=== PATIENT | female | born 1990 | race Caucasian/White ===

== ENCOUNTER 2022-06-09 12:09 | Inpatient (IN) | payer MEDICAID, MEDICARE, OTHER ==
[2022-06-09] MEDS ORDERED: METHYLERGONOVINE 0.2 MG/ML 1 ML AMP IM PRN (12:16)
[2022-06-09] MEDS ORDERED: AMPICILLIN 2,000 MG in SODIUM CHLORIDE 0.9% 100 ML IVPB STA (12:16)
[2022-06-09] MEDS ORDERED: TERBUTALINE 1 MG/ML VIAL SQ PRN (12:16)
[2022-06-09] MEDS ORDERED: CARBOPROST TROMETHAMINE 250 MCG/ML 1 ML AMP IM PRN (12:16)
[2022-06-09] MEDS ORDERED: LIDOCAINE 0.5% (PF) 5 MG/ML (50 ML SDV) SQ PRN (12:16)
[2022-06-09] MEDS: LACTATED RINGERS 1,000 ML IV SCH ×4 (12:40→17:09)
--- NOTE | 2022-06-09 12:41 | P.HPOB ---
History of Present Illness Chief Complaint: Leaking of fluid This patient is a 32-year-old 2 para 0 female estimated date of confinement 06/25/2022 estimated gestational age 37-5/7 weeks gestation who is admitted to labor and delivery with complaints of gush of fluid earlier this morning and onset of contractions thereafter. Patient's care is per Dr. Malik and is complicated by late to seek care, noncompliance with care and positive toxicology screen for amphetamines and marijuana. Patient also had an abnormal Glucola and has not been doing any glucose testing. Patient was in the office and saw Dr. Malik yesterday and was 1 cm dilated is now 3-4 cm dilated with ruptured membranes meconium fluid and thought to be in early labor. Review of Systems Genitourinary: Reports Menstruation: Reports amenorrhea Past Medical History Past Medical History: No Reported History History of Any Multi-Drug Resistant Organisms: None Reported Past Surgical History: No Surgical Hx Reported Past Psychological History: No Psychological Hx Reported Smoking Status: Current every day smoker Past Alcohol Use History: None Reported Past Drug Use History: Marijuana, Methamphetamine Medications and Allergies Home Medications Medication Instructions Recorded Confirmed Type No Known Home Medications 06/09/22 06/09/22 History Allergies Allergy/AdvReac Type Severity Reaction Status Date / Time No Known Allergies Allergy Verified 06/09/22 12:15 Exam Intake and Output 06/08/22 06/09/22 06/09/22 22:59 06:59 14:59 Other: Weight 52.163 kg - OBG Physical Exam Abdomen: bowel sounds normal, no diffuse tenderness, no bruit present, no guarding noted, no hepatomegaly, no splenomegaly, no mass Vulva: both: normal Vagina: normal moisture, no discharge Cervix: no lesion (cervix is 3-4 cm dilated with gross rupture membranes and thick meconium fluid), no discharge Uterus: enlarged (fundal height yesterday per Dr. Malik 35 cm) Results labs show she is O positive, rubella immune, RPR nonreactive, hepatitis B negative, HIV is nonreactive, hemoglobin is 11.8, group B strep was positive, Glucola was abnormal at 149 and she did not do a 3 hour gtt., drug screen was positive for cannabinoids and amphetamines on May 11 Assessment and Plan Assessment: This is a 32-year-old 2 para 0 female 37-5/7 weeks with spontaneous rupture membranes, early labor, thick meconium fluid, noncompliance with care, polysubstance abuse, and positive group B strep. Plan is antibiotic prophylaxis and anticipate vaginal delivery. She will need a mental health social worker consultation and I also did discuss with the funeral planner the fact that she has all these findings. (1) 37 or more weeks gestation of Current Visit: Yes Status: Acute Code(s): TSP7491 - SNOMED Code(s): 87725 001 (2) Spontaneous rupture of amniotic membranes Current Visit: Yes Status: Acute Code(s): CXY4852 - SNOMED Code(s): 654114324 (3) Meconium in amniotic fluid Current Visit: Yes Status: Acute Code(s): P96.83 - MECONIUM STAINING SNOMED Code(s): 986957734 (4) Non-compliance Current Visit: Yes Status: Acute Code(s): Z91.199 - PT NONCOMPL WITH OTHER MED TRTMT AND REGIMEN D/T UNSP REASON SNOMED Code(s): 9822449 (5) Polysubstance abuse Current Visit: Yes Status: Acute Code(s): F19.10 - OTHER PSYCHOACTIVE SUBSTANCE ABUSE, UNCOMPLICATED SNOMED Code(s): 639883922
[2022-06-09 13:05] LABS: HCT 31.1 % (34.0-46.0); HGB 10.1 gm/dL (11.4-16.0); Hypochromasia Marked; MCH 23.3 pg (25.0-35.0); MCHC 32.4 g/dL (31.0-37.0); MCV 71.9 fL (80.0-100.0); Mean Platelet Volume 8.1; Microcytosis Moderate; Platelet Count 876 k/uL (150-450); Poikilocytosis Moderate; RBC 4.32 m/uL (3.80-5.40); RDW 15.5 % (11.5-15.5); WBC 28.6 k/uL (3.8-10.6)
[2022-06-09] MEDS ORDERED: SODIUM CHLORIDE 0.9% 100 ML BAG ONE (13:06)
[2022-06-09] MEDS ORDERED: fentaNYL (PF) 50 MCG/ML 5 ML AMP ONE (13:06)
[2022-06-09] MEDS ORDERED: ROPIVACAINE 5 MG/ML 20 ML AMPULE ONE (13:06)
[2022-06-09 13:12] LABS: Amphetamine Screen,Urine Not Detected (NotDetected); Barbiturate Screen,Urine Not Detected (NotDetected); Benzodiazepines Screen,Urine Not Detected (NotDetected); Cocaine Screen,Urine Not Detected (NotDetected); Methadone Screen, Urine Not Detected (NotDetected); Opiate Screen,Urine Not Detected (NotDetected); Oxycodone Screen, Urine Not Detected (NotDetected); Phencyclidine Screen,Urine Not Detected (NotDetected); Tricyclic Antidepressant,Urine Not Detected (NotDetected); Urn Cannabinoid Scrn Detected (NotDetected)
[2022-06-09 13:18] LABS: Lymphocytes # (M) 2.57 k/uL (1.0-4.8); Monocytes # (M) 1.14 k/uL (0-1.0); Neutrophils # (M) 25.17 k/uL (1.3-7.7); Neutrophils % (M) 88 %; Nucleated Red Blood Cells 0 /100 WBC (0-0); Rouleaux Present; Total Cells Counted 200
--- NOTE | 2022-06-09 17:05 | P.PN ---
Progress Note - Text Progress Note Date: 06/09/22 Patient's CBC returned with a white blood cell count of 28.9 with increased number of neutrophils. Patient also has elevated platelets which apparently is a chronic issue. Temperature at this time is 99 1. She was having some late decelerations however these did respond to some fluid and position changes. Cervix is 7-8 cm dilated she does have some swelling. Patient is already on some IV antibiotics due to positive strep culture. Plan at this time is close observation if she were to continue to have late decelerations or evidence of nonprogression we'll proceed with delivery by section.
[2022-06-09] MEDS: AMPICILLIN 1,000 MG in SODIUM CHLORIDE 0.9% 50 ML IVPB SCH ×2 (17:08→22:12)
[2022-06-09] MEDS ORDERED: OXYTOCIN 30 UNITS/500 ML NS 30 UNIT in SALINE 1 500ML.BAG IV SCH (18:30)
--- NOTE | 2022-06-09 19:39 | P.PROBDLV ---
Vaginal Delivery Note - . Vaginal Delivery Note: Normal spontaneous vaginal delivery viable female Apgars 9 and 9 delivery time is 1918 hrs. Please see dictated H&P for intimate details of this patient's admission. In brief summary this is a 32-year-old 2 para 0 female 37-4/7 weeks gestation admitted to labor and delivery with spontaneous rupture membranes for meconium-stained fluid. Patient's admission is 3-4 cm dilated. Patient does receive an epidural for pain control. Patient gets to approximately 8 cm dilated and is started having some swelling on the cervix. At this time we do position changes and I do start some Pitocin. Patient thereafter does get to complete pushes for 5 or 10 minutes and pushes the head to the perineum. Posterior perineum is supported we have controlled delivery of the infant's head over the intact perineum. Nurse manager practice is present for delivery. Mouth and nares are bulb suctioned. There is no evidence of a nuchal cord. With gentle downward traction we then have deliver the anterior and posterior shoulder and rest this infant's body. This is a vigorous viable female Apgars are 9 and 9 delivery time is 1918 hrs. After delivery of the the umbilical cord is loud quit pulsating then doubly clamped and cut. The placenta is then spontaneously delivered intact. Estimated blood loss is approximately 100 mL. There are superficial bilateral periurethral lacerations that do not require repair. and mother are stable delivery room. No complications. All counts correct 3.
[2022-06-09] MEDS ORDERED: diphenhydrAMINE 50 MG CAP PO PRN (21:01)
[2022-06-09] MEDS ORDERED: diphenhydrAMINE 25 MG CAP PO PRN (21:01)
[2022-06-09] MEDS ORDERED: BENZOCAINE/MENTHOL SPRAY 1 GM/SPRAY AEROSOL TOPICAL PRN (21:01)
[2022-06-09] MEDS ORDERED: LANOLIN CREAM 5 GM TUBE TOPICAL PRN (21:01)
[2022-06-09] MEDS ORDERED: HYDROCORTISONE 2.5% RECTAL CREAM 30 GM TUBE RECTAL PRN (21:01)
[2022-06-09] MEDS ORDERED: ACETAMINOPHEN TAB 325 MG TAB PO PRN (21:01)
[2022-06-09] MEDS ORDERED: SIMETHICONE 80 MG CHEWABLE PO PRN (21:01)
[2022-06-09] MEDS ORDERED: ZOLPIDEM 5 MG TAB PO PRN (21:01)
[2022-06-09] MEDS: IBUPROFEN 600 MG TAB PO PRN (21:33)
[2022-06-10 08:32] LABS: HCT 29.8 % (34.0-46.0); Hypochromasia Marked; MCH 22.1 pg (25.0-35.0); MCHC 30.3 g/dL (31.0-37.0); Mean Platelet Volume 7.3; Microcytosis Slight; Platelet Count 871 k/uL (150-450); Poikilocytosis Moderate; RBC 4.08 m/uL (3.80-5.40); RDW 15.5 % (11.5-15.5)
[2022-06-10 08:45] LABS: WBC 31.7 k/uL (3.8-10.6)
[2022-06-10] MEDS: IBUPROFEN 600 MG TAB PO PRN ×3 (08:48→22:20)
[2022-06-10] MEDS: SENNOSIDES-DOCUSATE SODIUM 1 EACH TAB PO SCH ×2 (08:49→20:27)
--- NOTE | 2022-06-10 09:07 | P.DS ---
Providers Date of admission: 06/09/22 12:16 Expected date of discharge: 06/10/22 Attending physician: Heather Malik Primary care physician: Stated None Hospital Course: This is a 32-year-old female 2 para 0 at 37-4/7 weeks who presented in active labor. She delivered vaginally a viable female infant on 06/09/2022 with scores of 9 at 1 minute and 9 at 5 minutes and weight of 5 pounds 5.7 ounces. Her course has been essentially uncomplicated. She is bottle feeding. Pain is fairly well controlled. Lochia is decreasing. Plan is to discharge home later today as long as baby is able to go. Will also await a.m. CBC. She will be given a prescription for ibuprofen and she is encouraged to continue taking her antibiotic at home for her urinary tract infection. She is instructed to follow-up in the office in 6 weeks for a check. She is advised to call the office if she has any questions or concerns prior to her appointment time. Routine instructions are given. Procedures: Spontaneous vaginal delivery of a viable female infant on 06/09/2022 Patient Condition at Discharge: Stable Plan - Discharge Summary New Discharge Prescriptions: New Ibuprofen [Motrin] 600 mg PO Q6HR PRN #60 tab PRN Reason: Mild Pain (Scale 1 To 3) Discharge Medication List Ibuprofen [Motrin] 600 mg PO Q6HR PRN #60 tab 06/10/22 [Rx] Follow up Appointment(s)/Referral(s): Heather Malik DO [Doctor of Osteopathic Medicine] - 6 Weeks Activity/Diet/Wound Care/Special Instructions: Finish antibiotics for urinary tract infection Instructions 1. Do not begin any exercise program for 3 weeks. 2. Do not resume sexual relations for 3 weeks or longer if uncomfortable. 3. You may take tub baths or showers at any time. 4. You may use tampons if desired after 3 weeks. 5. Keep the area of episiotomy (stitches) clean and dry. 6. If you are not nursing, wear a good fitting, supportive bra during the day and limit fluid intake for at least 1 week to prevent breast engorgement. 7. Call the office, [phone], within the next week to make appointment for your 6 week checkup if it has not already been made. 8. Report any of the following occurrences to the doctor promptly: a. Heavy, excessive bleeding b. Chills, fever c. Burning or frequency of urination d. Pain or redness and breasts if nursing e. Increasing pain or swelling in episiotomy (stitches). In addition to the above instructions, the following additional should be followed: 1. No heavy lifting or straining (exercising) until after 6 week checkup. 2. Keep abdominal incision clean and dry: You may wear a dressing if more comfortable. 3. Make office appointment for 10 days after going home or as instructed by her doctor. Discharge Disposition: HOME SELF-CARE
[2022-06-10 13:12] LABS: Lymphocytes # (M) 3.17 k/uL (1.0-4.8); Monocytes # (M) 0.63 k/uL (0-1.0); Neutrophils % (M) 88 %; Nucleated Red Blood Cells 0 /100 WBC (0-0); Total Cells Counted 100
[2022-06-10 13:13] LABS: Polychromasia Present
[2022-06-10] MEDS: CEPHALEXIN 500 MG CAP PO SCH ×3 (13:53→22:21)
[2022-06-10] MEDS ORDERED: NICOTINE 14MG/24HR PATCH TRANSDERM SCH (16:00)
[2022-06-10 23:43] VITALS: PULSE 84
[2022-06-11] MEDS: IBUPROFEN 600 MG TAB PO PRN (05:36)
[2022-06-11 06:19] LABS: Basophils # (A) 0.1 k/uL (0-0.2); Basophils % (A) 1 %; Eosinophils # (A) 0.3 k/uL (0-0.7); Eosinophils % (A) 1 %; HCT 27.6 % (34.0-46.0); HGB 8.6 gm/dL (11.4-16.0); Hypochromasia Marked; Lymphocytes # (A) 2.7 k/uL (1.0-4.8); Lymphocytes % (A) 11 %; MCH 23.2 pg (25.0-35.0); MCV 74.9 fL (80.0-100.0); Mean Platelet Volume 7.2; Microcytosis Slight; Monocytes # (A) 0.8 k/uL (0-1.0); Monocytes % (A) 3 %; Neutrophils # (A) 19.5 k/uL (1.3-7.7); Neutrophils % (A) 82 %; Platelet Count 878 k/uL (150-450); Poikilocytosis Moderate; RBC 3.68 m/uL (3.80-5.40); RDW 15.2 % (11.5-15.5); WBC 23.7 k/uL (3.8-10.6)
[2022-06-11 07:24] VITALS: BP 126/80; RESP 18; TEMP 97.7
[2022-06-11] MEDS: CEPHALEXIN 500 MG CAP PO SCH ×2 (08:45→14:44)
[2022-06-11] MEDS: SENNOSIDES-DOCUSATE SODIUM 1 EACH TAB PO SCH (08:45)
--- NOTE | 2022-06-11 09:23 | P.PN ---
Progress Note - Text Progress Note Date: 06/11/22 Is doing well today. Her white count did come down to 23,000 from 31,000. She has had no fevers. She denies any new symptoms. She does feel well enough to go home. Discharge will be changed to today. She will continue her Keflex at home.
== END 2022-06-11 14:50 | disposition home or self-care (01) | DRG 806 ==
LOC: FBPOP 12:09 → 4FBP 12:16
PROVIDERS: ADMIT Obstetrics & Gynecology; ATTEND Obstetrics & Gynecology
PROC: 10E0XZZ Delivery of Products of Conception, External Approach (ICD-10-PCS; principal; 2022-06-09)
DX: O99.324 Drug use complicating childbirth (principal); N39.0 Urinary tract infection, site not specified; Z37.0 Single live birth; O23.43 Unspecified infection of urinary tract in pregnancy, third trimester; O99.834 Other infection carrier state complicating childbirth; F19.10 Other psychoactive substance abuse, uncomplicated; O77.0 Labor and delivery complicated by meconium in amniotic fluid; O71.82 Other specified trauma to perineum and vulva; F17.210 Nicotine dependence, cigarettes, uncomplicated; O99.334 Smoking (tobacco) complicating childbirth; O76 Abnormality in fetal heart rate and rhythm complicating labor and delivery; R79.89 Other specified abnormal findings of blood chemistry; Z3A.37 37 weeks gestation of pregnancy; Z28.310 Unvaccinated for COVID-19; Z91.199 Patient's noncompliance with other medical treatment and regimen due to unspecified reason
CPT/HCPCS: 59025; 80306; 84112; 85025; 86850; 86900; 86901; 88307; 99213